=== PATIENT | female | born 1955 | race Caucasian/White ===

== ENCOUNTER 2017-03-02 08:26 | Outpatient (CLI) | payer OTHER | END 2017-03-02 08:27 | DX: Z51.81 Encounter for therapeutic drug level monitoring (principal); E78.5 Hyperlipidemia, unspecified; R73.9 Hyperglycemia, unspecified; I10 Essential (primary) hypertension ==

== ENCOUNTER 2017-08-25 14:24 | Outpatient (CLI) | payer OTHER ==
[2017-08-25 13:10] LABS: BASOPHILS % (AUTO) 0.7 %; EOSINOPHILS # (AUTO) 0.2 10^3/uL (0.0-0.7); EOSINOPHILS % (AUTO) 2.8 %; HCT - HEMATOCRIT 39.9 % (37.0-47.0); HGB - HEMOGLOBIN 13.6 g/dL (12.0-16.0); LYMPHOCYTES # (AUTO) 2.3 10^3/uL (1.5-3.5); LYMPHOCYTES % (AUTO) 37.8 %; MEAN CORPUSCULAR HEMOGLOBIN 31.8 pg (27.0-31.0); MEAN CORPUSCULAR VOLUME 93.5 fL (81.0-99.0); MEAN PLATELET VOLUME 10.9 fL (7.9-10.8); MONOCYTES # (AUTO) 0.6 10^3/uL (0.0-1.0); MONOCYTES % (AUTO) 10.2 %; NEUTROPHILS % (AUTO) 48.5 %; NUCLEATED RED BLOOD CELLS AUTO 0.1 /100WBC; RED BLOOD COUNT 4.27 10^6/uL (4.20-5.40); RED CELL DISTRIBUTION WIDTH 12.8 % (12.0-15.0); UNCORRECTED WHITE BLOOD COUNT 6.2 x10^3/uL; WHITE BLOOD COUNT 6.2 x10^3/uL (4.8-10.8)
[2017-08-25 13:33] LABS: ALBUMIN/GLOBULIN RATIO 1.4 (1.0-2.2); BILIRUBIN,TOTAL 0.3 mg/dL (0.2-1.0); BUN - BLOOD UREA NITROGEN 16 mg/dL (6-20); CARBON DIOXIDE - CO2 29 mmol/L (21-32); CHLORIDE 102 mmol/L (101-111); CHOL/HDL RATIO 3.1 (<4.4); CHOLESTEROL 167 mg/dL; CREATININE 0.8 mg/dL (0.4-1.0); GFR - MDRD 73 (>89); GLUCOSE 120 mg/dL (70-100); HDL CHOLESTEROL 54 mg/dL; LDL/HDL RATIO 1.7 (<4.4); POTASSIUM 3.4 mmol/L (3.5-5.0); SODIUM 136 mmol/L (135-145); TRIGLYCERIDES 116 mg/dL; VLDL CHOLESTEROL 23 mg/dL
[2017-08-25 13:36] LABS: HEMOGLOBIN A1C 0.53 g/dL
== END 2017-08-25 14:25 | disposition home or self-care (01) ==
LOC: LAB.WCP 14:24
PROVIDERS: ATTEND Physician Assistant Medical
DX: Z00.00 Encounter for general adult medical examination without abnormal findings (principal); I10 Essential (primary) hypertension; Z51.81 Encounter for therapeutic drug level monitoring; E78.5 Hyperlipidemia, unspecified; R73.9 Hyperglycemia, unspecified
CPT/HCPCS: 36415; 80053; 80061; 83036; 84443; 85025

== ENCOUNTER 2018-03-03 08:00 | Outpatient (CLI) | payer OTHER ==
[2018-03-03 19:54] LABS: CALCIUM 9.6 mg/dL (8.5-10.3); CREATININE 0.8 mg/dL (0.4-1.0); MAGNESIUM 2.1 mg/dL (1.7-2.8)
== END 2018-03-03 08:01 | disposition home or self-care (01) ==
LOC: LAB.WCP 08:00
PROVIDERS: ATTEND Physician Assistant
DX: E87.6 Hypokalemia (principal)
CPT/HCPCS: 36415; 80048; 83735

== ENCOUNTER 2018-08-26 09:45 | Outpatient (CLI) | payer OTHER ==
[2018-08-26 13:02] LABS: BASOPHILS % (AUTO) 0.3 %; EOSINOPHILS # (AUTO) 0.1 10^3/uL (0.0-0.7); EOSINOPHILS % (AUTO) 2.1 %; HGB - HEMOGLOBIN 13.5 g/dL (12.0-16.0); LYMPHOCYTES # (AUTO) 2.1 10^3/uL (1.5-3.5); LYMPHOCYTES % (AUTO) 34.4 %; MEAN CORPUSCULAR HEMOGLOBIN 32.1 pg (27.0-31.0); MEAN CORPUSCULAR HGB CONC 34.7 g/dL (32.0-36.0); MEAN CORPUSCULAR VOLUME 92.4 fL (81.0-99.0); MONOCYTES # (AUTO) 0.6 10^3/uL (0.0-1.0); MONOCYTES % (AUTO) 9.9 %; NEUTROPHILS # (AUTO) 3.2 10^3/uL (1.5-6.6); NEUTROPHILS % (AUTO) 53.3 %; PLT - PLATELET COUNT 207 10^3/uL (130-450); RED BLOOD COUNT 4.21 10^6/uL (4.20-5.40); RED CELL DISTRIBUTION WIDTH 12.9 % (12.0-15.0); WHITE BLOOD COUNT 6.1 x10^3/uL (4.8-10.8)
[2018-08-26 13:07] LABS: ALBUMIN 4.2 g/dL (3.2-5.5); ALBUMIN/GLOBULIN RATIO 1.4 (1.0-2.2); ALKALINE PHOSPHATASE 62 IU/L (42-121); ALT ALANINE AMINOTRANSFERASE 26 IU/L (10-60); AST ASPARTATE AMINOTRANSFERASE 25 IU/L (10-42); BILIRUBIN,TOTAL 0.6 mg/dL (0.2-1.0); BUN - BLOOD UREA NITROGEN 14 mg/dL (6-20); CALCIUM 9.2 mg/dL (8.5-10.3); CARBON DIOXIDE - CO2 28 mmol/L (21-32); CHLORIDE 98 mmol/L (101-111); CHOL/HDL RATIO 3.1 (<4.4); CHOLESTEROL 168 mg/dL; CREATININE 0.8 mg/dL (0.4-1.0); GFR - MDRD 72 (>89); GLUCOSE 102 mg/dL (70-100); HDL CHOLESTEROL 54 mg/dL; LDL CHOLESTEROL,CALCULATED 82 mg/dL; LDL/HDL RATIO 1.5 (<4.4); SODIUM 135 mmol/L (135-145); TOTAL PROTEIN 7.1 g/dL (6.7-8.2); VLDL CHOLESTEROL 32 mg/dL
[2018-08-26 13:30] LABS: HEMOGLOBIN A1C 0.52 g/dL; HEMOGLOBIN A1C % 5.5 % (4.6-6.2)
== END 2018-08-26 09:46 | disposition home or self-care (01) ==
LOC: LAB.WCP 09:45
PROVIDERS: ATTEND Family Medicine
DX: I10 Essential (primary) hypertension (principal); E87.6 Hypokalemia; H60.60 Unspecified chronic otitis externa, unspecified ear; E78.5 Hyperlipidemia, unspecified; R73.9 Hyperglycemia, unspecified
CPT/HCPCS: 36415; 80053; 80061; 83036; 83721; 84443; 85025

== ENCOUNTER 2019-03-23 08:00 | Outpatient (CLI) | payer OTHER ==
[2019-03-23 13:09] LABS: ALBUMIN/GLOBULIN RATIO 1.4 (1.0-2.2); BILIRUBIN,TOTAL 0.6 mg/dL (0.2-1.0); CALCIUM 9.3 mg/dL (8.5-10.3); CREATININE 0.8 mg/dL (0.4-1.0); TOTAL PROTEIN 6.9 g/dL (6.7-8.2)
== END 2019-03-23 08:01 | disposition home or self-care (01) ==
LOC: LAB.WCP 08:00
PROVIDERS: ATTEND Physician Assistant
DX: E87.6 Hypokalemia (principal)
CPT/HCPCS: 36415; 80053

== ENCOUNTER 2019-09-02 08:00 | Outpatient (CLI) | payer OTHER ==
[2019-09-02 12:39] LABS: BASOPHILS % (AUTO) 0.5 %; EOSINOPHILS # (AUTO) 0.1 10^3/uL (0.0-0.7); EOSINOPHILS % (AUTO) 1.9 %; HGB - HEMOGLOBIN 14.4 g/dL (12.0-16.0); LYMPHOCYTES # (AUTO) 1.7 10^3/uL (1.5-3.5); LYMPHOCYTES % (AUTO) 28.3 %; MEAN CORPUSCULAR HEMOGLOBIN 31.2 pg (27.0-31.0); MEAN CORPUSCULAR HGB CONC 32.1 g/dL (32.0-36.0); MEAN CORPUSCULAR VOLUME 97.2 fL (81.0-99.0); MEAN PLATELET VOLUME 12.3 fL (7.9-10.8); MONOCYTES # (AUTO) 0.6 10^3/uL (0.0-1.0); NEUTROPHILS # (AUTO) 3.5 10^3/uL (1.5-6.6); NEUTROPHILS % (AUTO) 59.1 %; PLT - PLATELET COUNT 222 10^3/uL (130-450); RED BLOOD COUNT 4.62 10^6/uL (4.20-5.40); WHITE BLOOD COUNT 5.9 x10^3/uL (4.8-10.8)
[2019-09-02 13:03] LABS: ALBUMIN 4.3 g/dL (3.2-5.5); ALBUMIN/GLOBULIN RATIO 1.3 (1.0-2.2); ALKALINE PHOSPHATASE 57 IU/L (42-121); ALT ALANINE AMINOTRANSFERASE 37 IU/L (10-60); AST ASPARTATE AMINOTRANSFERASE 28 IU/L (10-42); BILIRUBIN,TOTAL 0.6 mg/dL (0.2-1.0); BUN - BLOOD UREA NITROGEN 18 mg/dL (6-20); CALCIUM 9.7 mg/dL (8.5-10.3); CARBON DIOXIDE - CO2 30 mmol/L (21-32); CHLORIDE 103 mmol/L (101-111); CHOL/HDL RATIO 3.2 (<4.4); CHOLESTEROL 190 mg/dL; CREATININE 0.9 mg/dL (0.4-1.0); GFR - MDRD 63 (>89); GLUCOSE 112 mg/dL (70-100); HDL CHOLESTEROL 60 mg/dL; LDL CHOLESTEROL,CALCULATED 95 mg/dL; LDL/HDL RATIO 1.6 (<4.4); SODIUM 141 mmol/L (135-145); TOTAL PROTEIN 7.5 g/dL (6.7-8.2); VLDL CHOLESTEROL 35 mg/dL
[2019-09-02 13:14] LABS: HB2 TOTAL 15.3 g/dL; HEMOGLOBIN A1C 0.57 g/dL; HEMOGLOBIN A1C % 5.6 % (4.6-6.2)
== END 2019-09-02 23:59 | disposition home or self-care (01) ==
LOC: LAB.WCP 08:00
PROVIDERS: ATTEND Physician Assistant
DX: Z00.00 Encounter for general adult medical examination without abnormal findings (principal); E87.6 Hypokalemia; I10 Essential (primary) hypertension; R73.9 Hyperglycemia, unspecified; Z51.81 Encounter for therapeutic drug level monitoring; E78.5 Hyperlipidemia, unspecified; Z79.899 Other long term (current) drug therapy
CPT/HCPCS: 36415; 80053; 80061; 83036; 83721; 84443; 85025

== ENCOUNTER 2021-02-04 07:00 | Outpatient (CLI) | payer OTHER, MEDICARE ==
[2021-02-04 11:33] LABS: BASOPHILS % (AUTO) 0.2 %; EOSINOPHILS # (AUTO) 0.1 10^3/uL (0.0-0.7); EOSINOPHILS % (AUTO) 2.1 %; HCT - HEMATOCRIT 43.5 % (37.0-47.0); HGB - HEMOGLOBIN 14.2 g/dL (12.0-16.0); LYMPHOCYTES % (AUTO) 37.7 %; MEAN CORPUSCULAR HEMOGLOBIN 31.4 pg (27.0-31.0); MEAN CORPUSCULAR HGB CONC 32.6 g/dL (32.0-36.0); MEAN CORPUSCULAR VOLUME 96.2 fL (81.0-99.0); MEAN PLATELET VOLUME 11.9 fL (7.9-10.8); MONOCYTES # (AUTO) 0.5 10^3/uL (0.0-1.0); MONOCYTES % (AUTO) 9.9 %; NEUTROPHILS # (AUTO) 2.6 10^3/uL (1.5-6.6); NEUTROPHILS % (AUTO) 49.9 %; PLT - PLATELET COUNT 220 10^3/uL (130-450); RED BLOOD COUNT 4.52 10^6/uL (4.20-5.40); RED CELL DISTRIBUTION WIDTH 12.2 % (12.0-15.0); WHITE BLOOD COUNT 5.2 x10^3/uL (4.8-10.8)
[2021-02-04 12:00] LABS: CREATININE,URINE 265.2 mg/dL; MICROALBUM/CREATININE RATIO,UR 3.4 ug/mg (<30.0); MICROALBUMIN,URINE 0.9 mg/dL (0-300.0)
[2021-02-04 12:34] LABS: ALBUMIN 4.3 g/dL (3.2-5.5); ALBUMIN/GLOBULIN RATIO 1.5 (1.0-2.2); ALKALINE PHOSPHATASE 55 IU/L (42-121); ALT ALANINE AMINOTRANSFERASE 31 IU/L (10-60); AST ASPARTATE AMINOTRANSFERASE 26 IU/L (10-42); BILIRUBIN,TOTAL 0.7 mg/dL (0.2-1.0); BUN - BLOOD UREA NITROGEN 17 mg/dL (6-20); CARBON DIOXIDE - CO2 30 mmol/L (21-32); CHLORIDE 101 mmol/L (101-111); CHOL/HDL RATIO 3.5 (<4.4); CHOLESTEROL 191 mg/dL; GFR - MDRD 56 (>89); GLUCOSE 120 mg/dL (70-100); HDL CHOLESTEROL 55 mg/dL; LDL CHOLESTEROL,CALCULATED 104 mg/dL; LDL/HDL RATIO 1.9 (<4.4); POTASSIUM 3.5 mmol/L (3.5-5.0); SODIUM 140 mmol/L (135-145); TOTAL PROTEIN 7.1 g/dL (6.7-8.2); TRIGLYCERIDES 158 mg/dL; VLDL CHOLESTEROL 32 mg/dL
[2021-02-04 12:35] LABS: THYROID STIMULATING HORMONE 1.3 uIU/mL (0.34-5.60)
[2021-02-04 12:45] LABS: ESTIMATED AVERAGE GLUCOSE 108 mg/dL (70-100); HEMOGLOBIN A1c% 5.4 % (4.27-6.07)
== END 2021-02-04 23:59 | disposition home or self-care (01) ==
LOC: LAB.WCP 07:00
PROVIDERS: ATTEND Family Medicine
DX: Z00.00 Encounter for general adult medical examination without abnormal findings (principal); R73.9 Hyperglycemia, unspecified; E87.6 Hypokalemia; I10 Essential (primary) hypertension; Z78.0 Asymptomatic menopausal state
CPT/HCPCS: 36415; 80053; 80061; 82043; 82570; 83036; 83721; 84443; 85025

== ENCOUNTER 2021-03-08 14:17 | Outpatient (CLI) | payer OTHER, MEDICARE ==
--- NOTE | 2021-03-08 17:13 | DEXA Report ---
PROCEDURE: Dexa Spine and/or Hip INDICATIONS: POST MENOPAUSAL TECHNIQUE: Dual energy x-ray absorptiometry (DXA) was performed on a [employer]. Regions measur ed are the AP Spine, femoral neck, and if needed forearm. COMPARISON: None. FINDINGS: Lumbar Spine: Bone Mineral Density 1.00 to g/cm/cm,T score -1.4, osteopenia Left Hip: Bone Mineral Density 0.996 g/cm/cm,T score -0.1, normal Left Femoral Neck: Bone Mineral Density 0.987 g/cm/cm, T score -0.4, normal (T score greater or equal to -1.0: NORMAL) (T score from -1.1 to -2.4: OSTEOPENIA) (T score less than or equal to -2.5 to: OSTEOPOROSIS) Impression: Osteopenia. Patients with diagnosis of osteoporosis or osteopenia should have regular bone mineral density assess ment. For those eligible for Medicare, routine testing is allowed once every 2 years. Testing frequ ency can be increased for patients who have rapidly progressing disease or for those who are receivin g medical therapy to restore bone mass. Reviewed by: Alma Alvarez MD, PhD on 03/08/2021 5:12 PM PDT Approved by: Alma Alvarez MD, PhD on 03/08/2021 5:12 PM PDT Station ID: [id number]
== END 2021-03-08 14:18 | disposition home or self-care (01) ==
LOC: DI 14:17
PROVIDERS: ATTEND Family Medicine
DX: M85.88 Other specified disorders of bone density and structure, other site (principal)

== ENCOUNTER 2021-09-16 07:00 | Outpatient (CLI) | payer MEDICARE, OTHER ==
[2021-09-16 19:01] LABS: CRP - C-REACTIVE PROTEIN < 1.0 mg/dL (0-1.0)
[2021-09-16 19:13] LABS: RHEUMATOID FACTOR NEGATIVE (Negative)
== END 2021-09-16 23:59 | disposition home or self-care (01) ==
LOC: LAB.WCP 07:00
PROVIDERS: ATTEND Family Medicine
DX: R22.32 Localized swelling, mass and lump, left upper limb (principal)
CPT/HCPCS: 36415; 84550; 85651; 86140; 86200; 86430

== ENCOUNTER 2021-09-18 12:32 | Outpatient (CLI) | payer OTHER, MEDICARE ==
--- NOTE | 2021-09-19 09:20 | XRAY Report ---
PROCEDURE: Wrist 3 View LT INDICATIONS: SWELLING OF LEFT WRIST TECHNIQUE: 4 views of the wrist were acquired. COMPARISON: None FINDINGS: Bones: No acute fractures or dislocations. Small well-corticated bony fragment adjacent to the first carpal metacarpal joint. Mild joint space narrowing and periarticular osteophyte formation at the ra diocarpal, scaphotrapezial, and first carpometacarpal joints. No suspicious bony lesions. Scaphoid view: Negative Soft tissues: No suspicious soft tissue calcifications. IMPRESSION: 1. Possible small chronic fracture fragment adjacent to the first carpometacarpal joint. 2. Multifocal osteoarthritis. 3. No acute fracture. No osseous lesion. If symptoms and/or clinical suspicion for pathology continue , further assessment with repeat plain films, or advanced imaging (e.g., CT, MRI, or bone scan) is re commended for further assessment. Reviewed by: Blanche Wolfe MD on 09/19/2021 9:18 AM PDT Approved by: Blanche Wolfe MD on 09/19/2021 9:18 AM PDT Station ID: [id number]
== END 2021-09-18 12:33 | disposition home or self-care (01) ==
LOC: DI.N 12:32
PROVIDERS: ATTEND Family Medicine
DX: M79.89 Other specified soft tissue disorders (principal); M19.032 Primary osteoarthritis, left wrist

== ENCOUNTER 2022-03-02 13:23 | Emergency (ER) | payer OTHER ==
[2022-03-02 14:04] LABS: BASOPHILS % (AUTO) 0.2 %; EOSINOPHILS # (AUTO) 0.1 10^3/uL (0.0-0.7); EOSINOPHILS % (AUTO) 0.5 %; HCT - HEMATOCRIT 41.1 % (37.0-47.0); LYMPHOCYTES # (AUTO) 2.4 10^3/uL (1.5-3.5); LYMPHOCYTES % (AUTO) 19.2 %; MEAN CORPUSCULAR HEMOGLOBIN 31.8 pg (27.0-31.0); MEAN CORPUSCULAR HGB CONC 34.1 g/dL (32.0-36.0); MEAN CORPUSCULAR VOLUME 93.4 fL (81.0-99.0); MEAN PLATELET VOLUME 9.2 fL (7.9-10.8); MONOCYTES # (AUTO) 1.6 10^3/uL (0.0-1.0); MONOCYTES % (AUTO) 12.5 %; NEUTROPHILS # (AUTO) 8.4 10^3/uL (1.5-6.6); NEUTROPHILS % (AUTO) 67.3 %; PLT - PLATELET COUNT 215 10^3/uL (130-450); WHITE BLOOD COUNT 12.4 x10^3/uL (4.8-10.8)
[2022-03-02 14:10] LABS: BILIRUBIN,TOTAL 0.7 mg/dL (0.2-1.0); CALCIUM 9.6 mg/dL (8.5-10.3); CREATININE 0.9 mg/dL (0.4-1.0); POTASSIUM 3.7 mmol/L (3.5-5.0); SLIDE REVIEW? Indicated; TOTAL PROTEIN 7.9 g/dL (6.7-8.2)
[2022-03-02 14:14] LABS: BILIRUBIN,URINE NEGATIVE (NEGATIVE); CLARITY,URINE CLEAR (CLEAR); GLUCOSE, URINE (UA) NEGATIVE (NEGATIVE); KETONES,URINE (UA) NEGATIVE (NEGATIVE); LEUKOCYTE ESTERASE, URINE NEGATIVE (NEGATIVE); NITRITE,URINE NEGATIVE (NEGATIVE); OCCULT BLOOD,URINE MODERATE (NEGATIVE); PROTEIN,URINE NEGATIVE (NEGATIVE); UROBILINOGEN,URINE 0.2 (NORMAL) E.U./dL (NORMAL)
[2022-03-02 14:27] LABS: RBC,URINE 0-5 /HPF (0-5); WBC,URINE 0-3 /HPF (0-5)
[2022-03-02 14:28] LABS: BACTERIA,URINE Few /HPF (None Seen); SQUAMOUS EPITHELIAL CELL,UR FEW Squamous (<= Few)
[2022-03-02] MEDS ORDERED: IOVERSOL 320 100 ML VIAL IVP ONE ×2 (14:36→14:47)
[2022-03-02] MEDS ORDERED: AMOX/CLAV 875 MG/125 MG TABLET PO STA (14:54)
--- NOTE | 2022-03-02 15:10 | CT Report ---
PROCEDURE: Abdomen/Pelvis W INDICATIONS: LLQ pain x 3 days CONTRAST: IV CONTRAST: Optiray 320 ml: 100 PO CONTRAST: *NO PO CONTRAST TECHNIQUE: After the administration of IV contrast, 5 mm thick sections acquired from the diaphragms to the symp hysis. 5 mm thick coronal and sagittal reformats were acquired. For radiation dose reduction, the f ollowing was used: automated exposure control, adjustment of mA and/or kV according to patient size. COMPARISON: None. FINDINGS: Image quality: Excellent. ABDOMEN: Lung bases: Lung bases are clear. Heart size is normal. Solid organs: Diffuse fatty liver infiltration can be seen. The liver demonstrates normal size. No liver lesions are detected. Gallbladder has been removed. The spleen demonstrates normal size and demonstrates no suspicious lesions. Accessory splenules are s een along the hilum of the primary spleen. Biliary system is non dilated. Pancreas enhances normally. No adrenal nodules. Kidneys demonstrate normal size and enhancement, without hydronephrosis. Peritoneum and bowel: Focal wall thickening inflammatory change can be seen involving the distal desc ending colon/proximal sigmoid colon. Moderate surrounding inflammatory change can be seen. Diverticul a formation can be seen within this region. No findings of abscess can be seen. No free air or signif icant free fluid can be seen. The colon is otherwise unremarkable. No dilated loops of small bowel are seen. No significant gastric abnormality is seen. Nodes and vessels: No retroperitoneal or mesenteric adenopathy by size criteria. Aorta and inferior vena cava are normal in size. Miscellaneous: No ventral hernias. PELVIS: Genitourinary: Bladder wall thickness is normal. Sternotomy changes are noted. Miscellaneous: No inguinal hernias or adenopathy. Bones: No suspicious bony lesions. No vertebral body compression fractures. Focal degenerative katrin nge can be seen involving the lower lumbar spine. Milder degenerative changes are seen elsewhere. IMPRESSION: Left lower quadrant diverticulitis. No findings of perforation or abscess are seen. A colonoscopy is recommended for further evaluation, following treatment of the patient's current cli nical episode, for evaluation of a potential underlying mass. Incidental note is made of: Cholecystectomy Fatty liver infiltration Accessory splenules Hysterectomy Lower lumbar spine degenerative change Reviewed by: Salazar Toro MD on 03/02/2022 2:09 PM MONIQUE Approved by: Salazar Toro MD on 03/02/2022 2:09 PM [place] Station ID: [id number]
--- NOTE | 2022-03-02 15:15 | ED Physician Documentation ---
PD HPI ABD PAIN - Stated complaint Stated Complaint: ABD PX,FEMALE - Chief complaint Chief Complaint: Abd Pain - History obtained from History obtained from: Patient - History of Present Illness Timing - onset: Today, How many days ago (3) Timing - duration: Days (3) Pain level max: 6 Pain level now: 4 Quality: Aching, Pain Associated symptoms: No: Fever, Nausea, Vomiting, Diarrhea, Constipation, Melena, Hematochezia, Dysuria, Hematuria, Chest pain - Additional information Additional information: Patient is a 66-year-old female who presents to the emergency department with left lower quadrant abdominal pain for the past 3 days. Nothing makes it better or worse. No nausea, vomiting, diarrhea. No fevers. She went to the walk-in clinic, they were concerned about diverticulitis and was sent here for a CT scan. Review of Systems Constitutional: denies: Fever, Chills GI: denies: Vomiting, Diarrhea Skin: denies: Rash Musculoskeletal: denies: Neck pain, Back pain Neurologic: denies: Headache PD PAST MEDICAL HISTORY - Past Medical History Past Medical History: No - Past Surgical History Past Surgical History: No - Present Medications Home Medications: Ambulatory Orders Medication Instructions Recorded Confirmed Amox/Clav 875/125 [Augmentin] 1 tab PO Q12H #20 tablet 03/02/22 - Allergies Allergies/Adverse Reactions: Allergies Allergy/AdvReac Type Severity Reaction Status Date / Time codeine Allergy Respiratory Verified 03/02/22 13:43 morphine Allergy Respiratory Verified 03/02/22 13:43 oxycodone Allergy Respiratory Verified 03/02/22 13:43 - Living Situation Living Arrangement: reports: At home - Social History Does the pt smoke?: No Does the pt drink ETOH?: No Does the pt have substance abuse?: No PD ED PE NORMAL - Vitals Vital signs reviewed: Yes - General General: Alert and oriented X 3, No acute distress - HEENT HEENT: Moist mucous membranes - Neck Neck: Supple, no meningeal sign - Cardiac Cardiac: RRR, Strong equal pulses - Respiratory Respiratory: No respiratory distress, Clear bilaterally - Abdomen Abdomen: Soft, Non distended, Other (Tender palpation left lower quadrant without peritoneal signs.) - Derm Derm: Warm and dry - Neuro Neuro: Alert and oriented X 3 - Psych Psych: Normal mood, Normal affect Results - Vitals Vitals: Vital Signs - 24 hr 03/02/22 03/02/22 13:40 15:06 Temperature 36.7 C Heart Rate 90 90 Respiratory 16 18 Rate Blood Pressure 138/69 H 123/67 O2 Saturation 96 99 Oxygen O2 Source Room air - Labs Labs: Laboratory Tests 03/02/22 03/02/22 03/02/22 13:52 13:52 14:00 WBC 12.4 H RBC 4.40 Hgb 14.0 Hct 41.1 MCV 93.4 MCH 31.8 H MCHC 34.1 RDW 12.0 Plt Count 215 MPV 9.2 Neut # (Auto) 8.4 H Lymph # (Auto) 2.4 [place] # (Auto) 1.6 H Eos # (Auto) 0.1 Baso # (Auto) 0.0 Absolute Nucleated RBC 0.00 Nucleated RBC % 0.0 Manual Slide Review Indicated Sodium 138 Potassium 3.7 Chloride 97 L Carbon Dioxide 30 Anion Gap 11.0 BUN 15 Creatinine 0.9 Estimated GFR (MDRD) 63 L Glucose 121 H Calcium 9.6 Total Bilirubin 0.7 AST 20 ALT 26 Alkaline Phosphatase 53 Total Protein 7.9 Albumin 4.0 Globulin 3.9 Albumin/Globulin Ratio 1.0 Lipase 36 Urine Color LIGHT YELLOW Urine Clarity CLEAR Urine pH 6.0 Ur Specific [place] 1.015 Urine Protein NEGATIVE Urine Glucose (UA) NEGATIVE Urine Ketones NEGATIVE Urine Occult Blood MODERATE H Urine Nitrite NEGATIVE Urine Bilirubin NEGATIVE Urine Urobilinogen 0.2 (NORMAL) Ur Leukocyte Esterase NEGATIVE Urine RBC 0-5 Urine WBC 0-3 Ur Squamous Epith Cells FEW Squamous Urine Bacteria Few Ur Microscopic Review INDICATED Urine Culture Comments NOT INDICATED - Rads (name of study) CT abdomen and pelvis Radiology: Final report received, EMP read contemporaneously, See rad report (Left lower quadrant diverticulitis, uncomplicated) PD MEDICAL DECISION MAKING - ED course Complexity details: reviewed results, re-evaluated patient, considered differential, d/w patient ED course: 66-year-old female with left lower quadrant diverticulitis, no perforation or abscess. We will treat with antibiotics. Discussed risks and benefits of antibiotic treatment for diverticulitis, she has elected to take the antibiotics. Patient has not had a colonoscopy for over 10 years, recommend that she have a colonoscopy once treatment is completed. Patient counseled regarding signs and symptoms for which I believe and urgent re-evaluation would be necessary. Patient with good understanding of and agreement to plan and is comfortable going home at this time This document was made in part using voice recognition software. While efforts are made to proofread this document, sound alike and grammatical errors may occur. Departure - Departure Disposition: 01 Home, Self Care Clinical Impression: Diverticulitis Condition: Good Instructions: ED Diverticulitis Follow-Up: Quco Bernal DO [Primary Care Provider] - Within 1 week Prescriptions: Amox/Clav 875/125 [Augmentin] 1 tab PO Q12H #20 tablet Comments: Please take all antibiotics until gone. Return if you worsen. Please follow-up with your doctor for further care. It is recommended to have a colonoscopy after completion of treatment. Your prescription was sent to [facility] in [place].
[2022-03-02 16:04] VITALS: BP 95/64
== END 2022-03-02 15:55 | disposition home or self-care (01) ==
LOC: ED 13:23
DX: K57.92 Diverticulitis of intestine, part unspecified, without perforation or abscess without bleeding (principal)
CPT/HCPCS: 36415; 74177; 80053; 81001; 83690; 85025; 99284; A9270; Q9967; 81003; 87086

== ENCOUNTER 2022-08-15 06:28 | Day surgery (SDC) | payer OTHER ==
[2022-08-15] MEDS ORDERED: LACTATED RINGERS 1,000 ML IV ONE ×2 (06:46→08:17)
--- NOTE | 2022-08-15 07:14 | ANESTHESIA ---
Pre-Anesthesia VS, & Labs - Diagnosis COLON SCREENING - Procedure COLONOSCOPY Vital Signs: Temp Pulse Resp BP Pulse Ox O2 Flow Rate 36.5 C 74 12 118/72 96 0 08/15/22 06:46 08/15/22 06:46 08/15/22 06:46 08/15/22 06:46 08/15/22 06:46 08/15/22 06:46 Height: 5 ft 4 in Weight (kg): 74 kg Body Mass Index: 28.0 BMI Classification: Overweight - NPO >8 hours - Is Patient ?: No Home Medications and Allergies Home Medications: Ambulatory Orders Calcium Carbonate [Calcium] 600 mg PO DAILY 08/14/22 Cholecalciferol (Vitamin D3) [Vitamin D3] 1,250 mcg PO DAILY 08/14/22 Lactobacillus Combination No.4 [Probiotic] 1 each PO DAILY 08/14/22 [place]-3/Dha/Epa/Fish Oil [Fish Oil 1,000 mg Softgel] 1 tab ORAL DAILY 08/14/22 Pravastatin Sodium 20 mg PO DAILY 08/14/22 Triamterene 50 mg PO DAILY 08/14/22 Triazolam 0.25 mg PO PRN PRN 08/14/22 Tumeric/Ging/Bramwell/Oreg/Capryl [Candicidal Capsule] 1 each PO DAILY 08/14/22 buPROPion HCL [Bupropion Xl] 150 mg PO BID 08/14/22 glucosamine HCL [Glucosamine HCl] 1,500 mg PO DAILY 08/14/22 traZODone [Desyrel] 50 mg PO HS PRN 08/14/22 Calcium Carbonate [Calcium] 600 mg PO DAILY 08/14/22 Cholecalciferol (Vitamin D3) [Vitamin D3] 1,250 mcg PO DAILY 08/14/22 Lactobacillus Combination No.4 [Probiotic] 1 each PO DAILY 08/14/22 [place]lin-3/Dha/Epa/Fish Oil [Fish Oil 1,000 mg Softgel] 1 tab ORAL DAILY 08/14/22 Pravastatin Sodium 20 mg PO DAILY 08/14/22 Triamterene 50 mg PO DAILY 08/14/22 Triazolam 0.25 mg PO PRN PRN 08/14/22 Tumeric/Ging/Bramwell/Oreg/Capryl [Candicidal Capsule] 1 each PO DAILY 08/14/22 buPROPion HCL [Bupropion Xl] 150 mg PO BID 08/14/22 glucosamine HCL [Glucosamine HCl] 1,500 mg PO DAILY 08/14/22 traZODone [Desyrel] 50 mg PO HS PRN 08/14/22 Allergies/Adverse Reactions: Allergies Allergy/AdvReac Type Severity Reaction Status Date / Time codeine Allergy Respiratory Verified 08/15/22 06:51 morphine Allergy Respiratory Verified 08/15/22 06:51 oxycodone Allergy Respiratory Verified 08/15/22 06:51 Anes History & Medical History - Anesthetic History Anesthesia Complications: reports: No previous complications Family history of Anesthesia Complications: Denies Family history of Malignant Hyperthermia: Denies - Medical History Cardiovascular: reports: Hypertension, High cholesterol Pulmonary: reports: None Gastrointestinal: reports: Diverticulitis Urinary: reports: None Neuro: reports: None Musculoskeletal: reports: Osteoarthritis Endocrine/Autoimmune: reports: None Blood Disorders: reports: None Skin: reports: None Smoking Status: Former smoker Psychosocial: reports: Depression History of Cancer?: No - Surgical History General: reports: Cholecystectomy Gynecologic: reports: Hysterectomy Exam General: Alert, Oriented x3, Cooperative, No acute distress Dental: WNL Mouth Openin Fingerbreadth Neck Mobility: Normal Mallampati classification: II Thyromental Distance: less than 4 cm Mental/Cognitive Status: Alert/Oriented X3, Normal for patient Cognitive Status: Within normal limits Plan Anesthesia Type: General, Total IV Consent for Procedure(s) Verified and Reviewed: Yes Code Status: Attempt Resuscitation ASA classification: 2-Mild systemic disease Is this case an emergency?: No
[2022-08-15] MEDS ORDERED: PROPOFOL 500 MG/50 ML 500 MG/50 ML VIAL ONE (07:33)
[2022-08-15] MEDS ORDERED: MIDAZOLAM 2 MG/2 ML VIAL ONE (07:35)
[2022-08-15 08:38] VITALS: BP 111/65
--- NOTE | 2022-08-15 09:39 | ANESTHESIA POST OP EVALUATION ---
Anesthesia Post Eval - Post Anesthesia Eval Vitals: Last Vital Signs Temp 36.2 C L 08/15/22 08:37 Pulse 76 08/15/22 08:37 Resp 14 08/15/22 08:37 BP 111/65 08/15/22 08:37 Pulse Ox 98 08/15/22 08:37 O2 Flow Rate 0 08/15/22 06:46 CV Function Including HR & BP: Stable Pain Control: Satisfactory Nausea & Vomiting: Negative Mental Status: Baseline Respiratory Status: Airway Patent Hydration Status: Satisfactory Anesthesia Complications: None
== END 2022-08-15 06:29 | disposition home or self-care (01) ==
LOC: SDS 06:28
PROVIDERS: ATTEND Surgery
PROC: 0DBL8ZX Excision of Transverse Colon, Via Natural or Artificial Opening Endoscopic, Diagnostic (ICD-10-PCS; 2022-08-15)
PROC: 0DBM8ZX Excision of Descending Colon, Via Natural or Artificial Opening Endoscopic, Diagnostic (ICD-10-PCS; principal; 2022-08-15 07:30)
DX: Z12.11 Encounter for screening for malignant neoplasm of colon (principal); D12.3 Benign neoplasm of transverse colon; K57.30 Diverticulosis of large intestine without perforation or abscess without bleeding; I10 Essential (primary) hypertension; F41.9 Anxiety disorder, unspecified; Z87.891 Personal history of nicotine dependence
CPT/HCPCS: 45380; J7120

== ENCOUNTER 2023-06-27 21:02 | Outpatient (CLI) | payer OTHER | END 2023-06-27 23:59 | disposition critical access hospital (66) | LOC: EMS 21:02 | DX: R20.0 Anesthesia of skin (principal); R47.1 Dysarthria and anarthria; R46.4 Slowness and poor responsiveness; R53.1 Weakness; R29.810 Facial weakness; R47.81 Slurred speech | CPT/HCPCS: A0425; A0429 ==

== ENCOUNTER 2023-06-27 21:26 | Observation (INO) | payer OTHER ==
--- NOTE | 2023-06-27 21:47 | CT Report ---
PROCEDURE: Head W/O Stroke Protocol INDICATIONS: slurred speech, facial droop (L) TECHNIQUE: Noncontrast 4.5 mm thick angled axial sections acquired from the foramen magnum to the vertex, with c oronal reformats. For radiation dose reduction, the following was used: automated exposure control, adjustment of mA and/or kV according to patient size. COMPARISON: None. FINDINGS: Image quality: Excellent. CSF spaces: Basal cisterns are patent. No extra-axial fluid collections. Ventricles are normal in size and shape. Brain: No midline shift. No intracranial masses or hemorrhage. Bashir-white matter interface is norm al. Skull and face: Calvarium and visualized facial bones are intact, without suspicious lesions. Sinuses: Visualized sinuses and mastoids are clear. IMPRESSION: Normal for age, source of current symptoms is not seen. This study fulfills neurological imaging criteria for inclusion or exclusion of acute stroke therapie s based on available published neurological imaging guidelines. Reviewed by: Bryan Coon MD on 06/27/2023 9:46 PM PDT Approved by: Bryan Coon MD on 06/27/2023 9:46 PM PDT Station ID: [id number]
[2023-06-27 22:10] LABS: BILIRUBIN,URINE NEGATIVE (NEGATIVE); GLUCOSE, URINE (UA) NEGATIVE (NEGATIVE); KETONES,URINE (UA) NEGATIVE (NEGATIVE); LEUKOCYTE ESTERASE, URINE NEGATIVE (NEGATIVE); NITRITE,URINE NEGATIVE (NEGATIVE); OCCULT BLOOD,URINE NEGATIVE (NEGATIVE); PROTEIN,URINE NEGATIVE (NEGATIVE); UROBILINOGEN,URINE 0.2 (NORMAL) E.U./dL (NORMAL)
[2023-06-27 22:11] LABS: CLARITY,URINE CLEAR (CLEAR)
--- NOTE | 2023-06-27 22:12 | ED Physician Documentation ---
PD HPI FOCAL NEURO - Stated complaint Stated Complaint: CODE STROKE - Chief complaint Chief Complaint: Neuro - History obtained from History obtained from: Patient, EMS - Additional information Additional information: 68-year-old female with history of CVA with no residual deficit presents by EMS from home for slurred speech and left-sided facial droop since 830 tonight. EMS reports that symptoms briefly resolved during transport, however shortly after arrival to the emergency department symptoms returned. Patient denies use of blood thinners. Review of Systems Constitutional: denies: Fever, Chills Cardiac: denies: Chest pain / pressure, Palpitations, Calf pain Respiratory: denies: Dyspnea, Cough, Wheezing GI: denies: Abdominal Pain, Nausea, Vomiting, Constipation, Diarrhea Musculoskeletal: denies: Neck pain, Back pain, Extremity pain Neurologic: reports: Difficulty speaking, Other (FACIAL DROOP (LEFT)). denies: Focal weakness, Numbness, Near syncope, Headache, Head injury, LOC PD PAST MEDICAL HISTORY - Past Medical History Cardiovascular: Hypertension, High cholesterol Respiratory: None Neuro: None Endocrine/Autoimmune: None GI: Diverticulitis : None HEENT: None, Chronic hearing loss Psych: Panic attacks Musculoskeletal: Osteoarthritis Derm: None - Past Surgical History Past Surgical History: No General: Cholecystectomy /SYSTEM TRAINER: Hysterectomy - Present Medications Home Medications: Ambulatory Orders Medication Instructions Recorded Confirmed Pravastatin Sodium 20 mg PO HS 06/27/23 06/27/23 Trazodone HCl 100 mg PO HS 06/27/23 06/27/23 Triamterene/Hydrochlorothiazid 1 each PO DAILY 06/27/23 06/27/23 [Triamterene-Hctz 37.5-25 mg Cp] buPROPion HCL [Bupropion HCl Sr] 150 mg PO BID 06/27/23 06/27/23 - Allergies Allergies/Adverse Reactions: Allergies Allergy/AdvReac Type Severity Reaction Status Date / Time codeine Allergy Respiratory Verified 06/27/23 21:54 morphine Allergy Respiratory Verified 06/27/23 21:54 oxycodone Allergy Respiratory Verified 06/27/23 21:54 - Social History Does the pt smoke?: No Smoking Status: Former smoker Does the pt drink ETOH?: No Does the pt have substance abuse?: No PD ED PE NORMAL - Vitals Vital signs reviewed: Yes - General General: Alert and oriented X 3, No acute distress, Well developed/nourished - HEENT HEENT: Atraumatic, PERRL, EOMI - Neck Neck: Supple, no meningeal sign - Cardiac Cardiac: RRR, Strong equal pulses - Respiratory Respiratory: No respiratory distress, Clear bilaterally - Abdomen Abdomen: Soft, Non tender, Non distended - Derm Derm: Normal color, Warm and dry, No rash - Extremities Extremities: No deformity, No tenderness to palpate, Normal ROM s pain, No edema - Neuro Neuro: Alert and oriented X 3, No motor deficit, Other (slight slurring of speech. No aphasia. Slight facial droop L lower face) - Psych Psych: Normal mood, Normal affect NIHSS - Level of Consciousness Level of consciousness: (0) Alert, Keenly responsive LOC Questions: (0) Answers both Q's correct - Gaze Best Gaze: (0) Normal - Visual Visual: (0) No loss - Facial Palsy Facial Palsy: (1) Minor paralysis - Motor Arms (both separate) Motor Arm (right): (0) No drift Motor Arm (left): (0) No drift - Motor Legs (both separate) Motor Leg (right): (0) No drift Motor Leg (left): (0) No drift - Limb Ataxia Limb Ataxia: (0) Absent - Sensory Sensory: (0) Normal - Best Language Best Language: (0) No aphasia - Dysarthria Dysarthria: (1) [id number] dysarthria - Extinction and Inattention (formally neg Extinction and inattention: (0) No abnormality Results - Vitals Vitals: Vital Signs - 24 hr 06/27/23 06/27/23 06/27/23 21:48 22:00 22:30 Heart Rate 79 84 80 Respiratory 17 14 19 Rate Blood Pressure 157/69 H 140/50 H 131/77 H O2 Saturation 95 96 98 06/27/23 06/27/23 06/28/23 23:00 23:30 00:00 Heart Rate 80 80 75 Respiratory 20 18 11 L Rate Blood Pressure 131/77 H 131/77 H 126/56 L O2 Saturation 98 98 97 06/28/23 06/28/23 06/28/23 00:30 01:00 01:30 Heart Rate 77 67 71 Respiratory 12 10 L 10 L Rate Blood Pressure 119/56 L 126/78 118/54 L O2 Saturation 96 96 97 06/28/23 06/28/23 02:00 02:30 Heart Rate 66 67 Respiratory 10 L 10 L Rate Blood Pressure 109/58 L 118/55 L O2 Saturation 96 96 Oxygen O2 Source Room air - EKG (time done) 5492 EKG releavant findings:: EKG personally interpreted by author of this note. Relevant findings are: Rate: Rate (enter#) (82) Rhythm: NSR [place]: Normal Intervals: Normal ME QRS: Normal - Labs Labs: Laboratory Tests 06/27/23 06/27/23 06/27/23 21:45 22:18 22:18 WBC 5.9 RBC 4.37 Hgb 13.6 Hct 40.9 MCV 93.6 MCH 31.1 H MCHC 33.3 RDW 12.1 Plt Count 202 MPV 9.5 Neut # (Auto) 3.0 Lymph # (Auto) 2.0 [place] # (Auto) 0.7 Eos # (Auto) 0.1 Baso # (Auto) 0.0 Absolute Nucleated RBC 0.00 Nucleated RBC % 0.0 PT 10.1 INR 0.9 Sodium Potassium Chloride Carbon Dioxide Anion Gap BUN Creatinine Estimated GFR (MDRD) Glucose Calcium Total Bilirubin AST ALT Alkaline Phosphatase Troponin I High Sens Total Protein Albumin Globulin Albumin/Globulin Ratio Urine Color YELLOW Urine Clarity CLEAR Urine pH 7.0 Ur Specific [place] 1.010 Urine Protein NEGATIVE Urine Glucose (UA) NEGATIVE Urine Ketones NEGATIVE Urine Occult Blood NEGATIVE Urine Nitrite NEGATIVE Urine Bilirubin NEGATIVE Urine Urobilinogen 0.2 (NORMAL) Ur Leukocyte Esterase NEGATIVE Ur Microscopic Review NOT INDICATED Urine Culture Comments NOT INDICATED 06/27/23 06/27/23 22:18 22:18 WBC RBC Hgb Hct MCV MCH MCHC RDW Plt Count MPV Neut # (Auto) Lymph # (Auto) [place] # (Auto) Eos # (Auto) Baso # (Auto) Absolute Nucleated RBC Nucleated RBC % PT INR Sodium 137 Potassium 3.3 L Chloride 101 Carbon Dioxide 29 Anion Gap 7.0 BUN 18 Creatinine 1.1 H Estimated GFR (MDRD) 49 L Glucose 136 H Calcium 9.5 Total Bilirubin 0.3 AST 29 ALT 37 Alkaline Phosphatase 48 Troponin I High Sens 4.3 Total Protein 7.2 Albumin 4.0 Globulin 3.2 Albumin/Globulin Ratio 1.3 Urine Color Urine Clarity Urine pH Ur Specific [place] Urine Protein Urine Glucose (UA) Urine Ketones Urine Occult Blood Urine Nitrite Urine Bilirubin Urine Urobilinogen Ur Leukocyte Esterase Ur Microscopic Review Urine Culture Comments PD Medical Decision Making - ED course Complexity details: reviewed results, re-evaluated patient, considered differential, d/w patient, d/w family, d/w supply chain consultant ED course: Patient with slurred speech and facial droop. Briefly resolved in transit, however symptoms returned upon EMS arrival to emergency department. Upon my exam NIH 2 due to facial droop and slight slurring of speech. Stat stroke CT ordered. Teleneurology consulted upon patient's arrival, who also evaluated the patient. Shared decision making with patient and telemetry neurology, patient decided that risks of TNKase were too high based on current symptoms and declined TNKase. Laboratory work is reviewed, unremarkable. CT angio shows no large vessel occlusion. Patient to be admitted for stroke work-up per teleneurology recommendations. Given full dose ASA, teleneuro recommends ASA/plavix for 21 days. - TPA CVA checklist Inclusion crititeria: positive: CT no bleed, Onset know < 4.5 hr Relative contraindications: positive: Too mild Departure - Departure Disposition: 66 [facility] DC/Xfer Clinical Impression: Cerebrovascular accident (CVA) Qualifiers: CVA mechanism: other Qualified Code(s): I63.89 - Other cerebral infarction Condition: Stable Forms: PCP List
[2023-06-27] MEDS ORDERED: ASPIRIN CHEW 81 MG TABLET PO STA (22:18)
[2023-06-27 22:23] LABS: BASOPHILS % (AUTO) 0.5 %; EOSINOPHILS # (AUTO) 0.1 10^3/uL (0.0-0.7); EOSINOPHILS % (AUTO) 2.1 %; HCT - HEMATOCRIT 40.9 % (37.0-47.0); HGB - HEMOGLOBIN 13.6 g/dL (12.0-16.0); LYMPHOCYTES % (AUTO) 34.7 %; MEAN CORPUSCULAR HEMOGLOBIN 31.1 pg (27.0-31.0); MEAN CORPUSCULAR HGB CONC 33.3 g/dL (32.0-36.0); MEAN CORPUSCULAR VOLUME 93.6 fL (81.0-99.0); MEAN PLATELET VOLUME 9.5 fL (7.9-10.8); MONOCYTES # (AUTO) 0.7 10^3/uL (0.0-1.0); MONOCYTES % (AUTO) 11.3 %; NEUTROPHILS % (AUTO) 51.2 %; PLT - PLATELET COUNT 202 10^3/uL (130-450); RED BLOOD COUNT 4.37 10^6/uL (4.20-5.40); RED CELL DISTRIBUTION WIDTH 12.1 % (12.0-15.0); WHITE BLOOD COUNT 5.9 x10^3/uL (4.8-10.8)
[2023-06-27 22:33] LABS: INR 0.9 (0.8-1.2); PT - PROTHROMBIN TIME 10.1 secs (9.9-12.6)
[2023-06-27 22:35] LABS: ALBUMIN/GLOBULIN RATIO 1.3 (1.0-2.2); CALCIUM 9.5 mg/dL (8.5-10.3); CREATININE 1.1 mg/dL (0.4-1.0); POTASSIUM 3.3 mmol/L (3.5-5.0); TOTAL PROTEIN 7.2 g/dL (6.7-8.2)
--- NOTE | 2023-06-27 22:35 | XRAY Report ---
PROCEDURE: Chest 1 View X-Ray INDICATIONS: code stroke TECHNIQUE: One view of the chest was acquired. COMPARISON: None. FINDINGS: Surgical changes and devices: None. Lungs and pleura: No pleural effusions or pneumothorax. Lungs are clear. Mediastinum: Mediastinal contours appear normal. Heart size is normal. Bones and chest wall: No suspicious bony lesions. Overlying soft tissues appear unremarkable. IMPRESSION: No acute cardiopulmonary process. Reviewed by: Bryan Coon MD on 06/27/2023 10:33 PM PDT Approved by: Bryan Coon MD on 06/27/2023 10:33 PM PDT Station ID: [id number]
[2023-06-27 23:15] LABS: BILIRUBIN,TOTAL 0.3 mg/dL (0.2-1.0)
[2023-06-27] MEDS ORDERED: iohexoL-300 100 ML VIAL IVP ONE (23:40)
--- NOTE | 2023-06-28 00:16 | CT Report ---
PROCEDURE: CT Angio Head/Neck INDICATIONS: CODE STROKE TECHNIQUE: Axial 1 mm thin sections during arterial phase of contrast enhancement were obtained, with subsequent parasagittal and paracoronal reformation imaging optimized for vascular enhancement in vi sualization. COMPARISON: Noncontrast head CT earlier same day reviewed.. FINDINGS: Arterial structures from the aortic arch cephalad into the brain parenchyma show no area of high-grad e stenosis, embolic disease or aneurysm. No adjacent inflammatory change is seen. The visualized brai n parenchyma shows no edema or mass effect. Incidental note is made of moderately severe cervical deg enerative disc disease and moderate spinal stenosis over the middle and lower thirds of the cervical spine. IMPRESSION: Normal CT angiogram through the head and neck. Significant degenerative disc disease and spinal steno sis along the cervical spine best seen through the middle and lower thirds of the cervical region. Th is appears chronic. Reviewed by: Bryan Coon MD on 06/28/2023 12:15 AM PDT Approved by: Bryan Coon MD on 06/28/2023 12:15 AM PDT Station ID: [id number]
[2023-06-28] MEDS ORDERED: SODIUM CHLORIDE FLUSH 0.9% 10 ML SYRINGE IVP PRN (03:12)
[2023-06-28] MEDS ORDERED: ONDANSETRON 4 MG/2 ML VIAL IVP PRN (03:12)
--- NOTE | 2023-06-28 03:32 | HISTORY & PHYSICAL EXAMINATION ---
Chief Complaint - Chief Complaint Chief Complaint: L sided weakness, slurred speech History of Present Illness - History of Present Illness HPI Comment/Other: pt states that around 8-830 pm last night, she had L arm and leg weakness and numbness, along with L facial numbness, and slurred speech. no inciting factors. no chest pain, sob, or confusion. she states she had an episode of L sided weakness "about 40 years ago," but no documented h/o cva. no fevers or chills. no headache. no loc or seizures. no dysuria, hematuria, nausea, vomiting. History - Past Medical History Cardiovascular: reports: Hypertension, High cholesterol Respiratory: reports: None Neuro: reports: None Endocrine/Autoimmune: reports: None GI: reports: Diverticulitis : reports: None HEENT: reports: None, Chronic hearing loss Psych: reports: Panic attacks Musculoskeletal: reports: Osteoarthritis Derm: reports: None MRSA Hx?: No - Past Surgical History General: reports: Cholecystectomy /SKY CAP: reports: Hysterectomy Meds/Allgy - Home Medications Home Medications: Ambulatory Orders Medication Instructions Recorded Confirmed Pravastatin Sodium 20 mg PO HS 06/27/23 06/27/23 Trazodone HCl 100 mg PO HS 06/27/23 06/27/23 Triamterene/Hydrochlorothiazid 1 each PO DAILY 06/27/23 06/27/23 [Triamterene-Hctz 37.5-25 mg Cp] buPROPion HCL [Bupropion HCl Sr] 150 mg PO BID 06/27/23 06/27/23 - Allergies Allergies/Adverse Reactions: Allergies Allergy/AdvReac Type Severity Reaction Status Date / Time codeine Allergy Respiratory Verified 06/27/23 21:54 morphine Allergy Respiratory Verified 06/27/23 21:54 oxycodone Allergy Respiratory Verified 06/27/23 21:54 Review of Systems - Other Findings Other Findings: 14 pt review done with positives per hpi; all others reviewed as negative Exam - Vital Signs Vital Signs: Vital Signs x48h Pulse Resp BP Pulse Ox 06/28/23 02:30 67 10 L 118/55 L 96 06/28/23 02:00 66 10 L 109/58 L 96 06/28/23 01:30 71 10 L 118/54 L 97 06/28/23 01:00 67 10 L 126/78 96 06/28/23 00:30 77 12 119/56 L 96 06/28/23 00:00 75 11 L 126/56 L 97 06/27/23 23:30 80 18 131/77 H 98 06/27/23 23:00 80 20 131/77 H 98 06/27/23 22:30 80 19 131/77 H 98 06/27/23 22:00 84 14 140/50 H 96 06/27/23 21:48 79 17 157/69 H 95 - Physical Exam Comments/Other: gen - aaox3, nad, polite heent - eomi, nc/at, no obvious facial droop noted heart - rrr lungs - ctab abd - soft, nt, bsx4 msk - no acute trauma, rom intact x 4 neuro - cn 2-12 grossly intact, gag not checked, aaox3 Conclusion/Plan - Lab Results Fish Bones: 06/27/23 22:18 06/27/23 22:18 - Other Other Results/Comments: pt with - - cva waxing and waning symptoms of slurred speech and L sided weakness head / neck imaging thus far NEG per tele-neuro --> check mri, 2d echo, start asa, plavix continue neuro checks, check a1c, tsh, lipid panel - slurred speech improved / resolved now d/t above continue monitoring no difficulty swallowing - hypokalemia replete, check mag - hyperglycemia exacerbated d/t above no reported h/o t2dm check a1c f/u labs, neuro status, replete electrolytes further orders per clinical course
[2023-06-28 04:43] LABS: BASOPHILS % (AUTO) 0.7 %; EOSINOPHILS # (AUTO) 0.2 10^3/uL (0.0-0.7); EOSINOPHILS % (AUTO) 2.5 %; HCT - HEMATOCRIT 41.7 % (37.0-47.0); HGB - HEMOGLOBIN 13.8 g/dL (12.0-16.0); LYMPHOCYTES # (AUTO) 2.2 10^3/uL (1.5-3.5); MEAN CORPUSCULAR HEMOGLOBIN 31.6 pg (27.0-31.0); MEAN CORPUSCULAR HGB CONC 33.1 g/dL (32.0-36.0); MEAN CORPUSCULAR VOLUME 95.4 fL (81.0-99.0); MEAN PLATELET VOLUME 9.4 fL (7.9-10.8); MONOCYTES # (AUTO) 0.6 10^3/uL (0.0-1.0); MONOCYTES % (AUTO) 10.2 %; NEUTROPHILS % (AUTO) 49.4 %; PLT - PLATELET COUNT 211 10^3/uL (130-450); RED BLOOD COUNT 4.37 10^6/uL (4.20-5.40); RED CELL DISTRIBUTION WIDTH 12.1 % (12.0-15.0); WHITE BLOOD COUNT 6.1 x10^3/uL (4.8-10.8)
[2023-06-28 05:03] LABS: ALBUMIN 4.1 g/dL (3.2-5.5); ALBUMIN/GLOBULIN RATIO 1.4 (1.0-2.2); BILIRUBIN,TOTAL 0.3 mg/dL (0.2-1.0); CALCIUM 9.8 mg/dL (8.5-10.3); MAGNESIUM 1.9 mg/dL (1.7-2.3); PHOSPHORUS 4.3 mg/dL (2.5-5.0); POTASSIUM 3.7 mmol/L (3.5-4.5)
[2023-06-28 05:04] LABS: CHOLESTEROL 189 mg/dL; HDL CHOLESTEROL 63 mg/dL; LDL CHOLESTEROL,CALCULATED 103 mg/dL; LDL/HDL RATIO 1.6 (<4.4); TRIGLYCERIDES 116 mg/dL (48-352); VLDL CHOLESTEROL 23 mg/dL
[2023-06-28 05:05] LABS: HIV RAPID SCREEN NEGATIVE (NEGATIVE)
[2023-06-28 05:16] LABS: THYROID STIMULATING HORMONE 2.86 uIU/mL (0.34-5.60)
[2023-06-28 07:24] LABS: ESTIMATED AVERAGE GLUCOSE 114 mg/dL (70-100); HEMOGLOBIN A1c% 5.6 % (4.27-6.07)
[2023-06-28] MEDS ORDERED: POTASSIUM CHLORIDE 20 MEQ TABLET PO ONE (08:00)
[2023-06-28] MEDS: SODIUM CHLORIDE FLUSH 0.9% 10 ML SYRINGE IVP SCH ×2 (08:32→16:48)
[2023-06-28] MEDS ORDERED: CLOPIDOGREL 75 MG TABLET PO SCH (09:00)
[2023-06-28] MEDS ORDERED: ENOXAPARIN 40 MG/0.4 ML SYRINGE SUBQ SCH (09:00)
[2023-06-28] MEDS ORDERED: TRIAMT/HCTZ 37.5 MG/25 MG CAPSULE PO SCH (09:00)
[2023-06-28] MEDS ORDERED: ASPIRIN CHEW 81 MG TABLET PO SCH (09:00)
--- NOTE | 2023-06-28 10:48 | PHARMACY PROGRESS NOTE ---
- Best Possible Medication History Admit Date and Time: 06/28/23 0313 Processed by: Pharmacy Medication History completed: Yes Patient Interview: Completed Secondary Source(s): Pharmacy records As the person ultimately responsible for medication therapy, providers are able to order a medication from an existing home medication list in [facility] via the "Reconcile Routine" prior to Confirmation of that medication by sales support technician. Such practice is discouraged except when the physician, in their clinical judgment, deems that a medical need exists for a medication without regard to previous use.
--- NOTE | 2023-06-28 13:11 | CT Report ---
PROCEDURE: HEAD WO INDICATIONS: F/U stroke TECHNIQUE: Noncontrast 4.5 mm thick angled axial sections acquired from the foramen magnum to the vertex. For r adiation dose reduction, the following was used: automated exposure control, adjustment of mA and/or kV according to patient size. COMPARISON: CTA head 06/27/2023, CT head 06/27/2023 FINDINGS: Image quality: Excellent. CSF spaces: Basal cisterns are patent. No extra-axial fluid collections. Ventricles are normal in size and shape. Brain: No midline shift. No intracranial masses or hemorrhage. Bashir-white matter interface is norm al. Left frontal lobe encephalomalacia is unchanged Skull and face: Calvarium and visualized facial bones are intact, without suspicious lesions. Sinuses: Visualized sinuses and mastoids are clear. IMPRESSION: No acute intracranial pathology. Sequela of remote infarct in the left frontal lobe. Reviewed by: Ayden Mcgarry MD on 06/28/2023 12:10 PM MONIQUE Approved by: Ayden Mcgarry MD on 06/28/2023 12:10 PM [place] Station ID: [id number]
[2023-06-28] MEDS ORDERED: ACETAMINOPHEN 325 MG TABLET PO PRN (17:00)
--- NOTE | 2023-06-28 17:53 | DISCHARGE SUMMARY ---
Discharge Summary Admit Date: 06/28/23 Discharge Date: 06/28/23 Discharging Provider: Dr Greta Mcneill Primary Care Provider: MAUDE Mendoza Code Status: Attempt Resuscitation Condition at Discharge: Stable Discharge Disposition: 02 Transfer Acute Care Hosp Discharge Facility Name: [facility] History of Present Illness: This is a 68-year-old female with a history of stroke about 20 years ago, bilateral hearing loss, depression and hyperlipidemia. pt states that around 8-830 pm last night 06/27/23, she developed sudden L arm and leg weakness and numbness, along with L facial dropp and numbness, and slurred speech. no inciting factors. no chest pain, sob, or confusion. she states she had an episode of L sided weakness "about 20 years ago" . she had no fevers or chills. no headache. no loc or seizures. no dysuria, hematuria, nausea, vomiting. Upon presentation to the ER at 4.5 hours of symptoms, her symptoms had resolved, and a STAT head CT showed no acute findings. Neuro stroke was consulted and at that point her slurred speech and left facial droop and numbness recurred. SheThe recommendation was not to use TNK because her symptoms were so minor. Was advised to be brought into the hospital to undergo telemetry monitoring, brain MRI and have an echo. She was loaded with aspirin 324 mg orally. CODE STATUS is Full Code. - HOSPITAL COURSE Hospital Course: 1) CVA The patient was placed on telemetry, there were no episodes of A-fib seen. She was started on baby aspirin daily and Plavix 75 mg daily. She had presented with a stuttering stroke and the second episode of neuro deficit (which consisted of facial droop and slurred speech only), resolved, and her neuro exam was normal. We did not have MRI available for over a day and no Echo service available here for over 72 hours, therefore she was accepted in transfer to [facility] to complete the stroke work-up. 2) Old CVA There was evidence of left frontal lobe encephalomalacia seen on her CT brain i maging. 3) Hyperlipidemia Her fasting LDL came back at 103. The target is <70 in this pt with a stroke. Her Pravachol 20 mg dose was incraesed to 80 mg nightly. 4) [place] She uses bilateral hearing aides - ALLERGIES Allergies/Adverse Reactions: Allergies Allergy/AdvReac Type Severity Reaction Status Date / Time codeine Allergy Respiratory Verified 06/27/23 21:54 morphine Allergy Respiratory Verified 06/27/23 21:54 oxycodone Allergy Respiratory Verified 06/27/23 21:54 - MEDICATIONS Home Medications: Ambulatory Orders Medication Instructions Recorded Confirmed Pravastatin Sodium 20 mg PO HS 06/27/23 06/27/23 Trazodone HCl 100 mg PO HS 06/27/23 06/27/23 Triamterene/Hydrochlorothiazid 1 each PO DAILY 06/27/23 06/27/23 [Triamterene-Hctz 37.5-25 mg Cp] buPROPion HCL [Bupropion HCl Sr] 150 mg PO BID 06/27/23 06/27/23 Calcium Carbonate/Vitamin D3 1 tab PO DAILY 06/28/23 06/28/23 [Calcium 600-Vit D3 200 Tablet] Calcium Polycarbophil [Fiber-Lax] 2 tab PO DAILY 06/28/23 06/28/23 Glucosamine Sulfate 1 tab PO BID 06/28/23 06/28/23 Ibuprofen 1 tab PO DAILY 06/28/23 06/28/23 Lactobacillus Combination No.4 1 cap PO DAILY 06/28/23 06/28/23 [Probiotic] Multivitamin W/Minerals [Theragran 1 tab PO DAILY 06/28/23 06/28/23 M] Nicotine Polacrilex [Nicotine Gum] 1 tab PO BID PRN 06/28/23 06/28/23 [place]-3/Dha/Epa/Fish Oil [Fish Oil 1 cap PO DAILY 06/28/23 06/28/23 1,000 mg Softgel] - PHYSICAL EXAM AT DISCHARGE General Appearance: positive: No acute distress, Alert Eyes Bilateral: positive: Normal inspection, EOMI ENT: positive: ENT inspection nml, Other ([place], has bilat hearig aides) Neck: positive: Nml inspection, No JVD Respiratory: positive: No respiratory distress, Breath sounds nml Cardiovascular: positive: Regular rate & rhythm, No murmur Abdomen: positive: Non-tender, Nml bowel sounds, No distention Skin: positive: Warm, Dry Extremities: positive: Non-tender, No pedal edema Neurologic/Psychiatric: positive: Oriented x3, Motor nml, Sensation nml - LABS Result Diagrams: 06/28/23 04:31 06/28/23 12:35 - DIAGNOSTIC IMAGING Diagnostic Imaging Results: Final report reviewed - FOLLOW UP Follow Up: See PCP after discharge from [facility]. - TIME SPENT Time Spent in Discharge (Minutes): 30
--- NOTE | 2023-06-28 17:53 | Discharge Plan ---
Discharge Plan Problem Reviewed?: Yes Disposition: 02 Transfer Acute Care Hosp Condition: Stable No Smoking: If you smoke, Please STOP! Call for help.
[2023-06-28] MEDS ORDERED: PRAVASTATIN 10 MG TABLET PO SCH (21:00)
[2023-06-28] MEDS ORDERED: PRAVASTATIN 40 MG TABLET PO SCH (21:00)
[2023-06-28 21:25] VITALS: BP 117/63; O2SAT 95
[2023-06-30 06:10] LABS: RPR Non Reactive (Non Reactive)
== END 2023-06-28 21:20 | disposition short-term general hospital (02) ==
LOC: EDUNIT# → ED 21:26 → UNDOADMOB 06-28 03:13 → ICU 06-28 03:13 → UNDOADMOB 06-28 12:48 → ICU 06-28 12:48
PROVIDERS: ADMIT Student in an Organized Health Care Education/Training Program; ATTEND Internal Medicine
DX: I63.9 Cerebral infarction, unspecified (principal); R47.81 Slurred speech; R73.9 Hyperglycemia, unspecified; R29.810 Facial weakness; R29.702 NIHSS score 2; G81.94 Hemiplegia, unspecified affecting left nondominant side; E78.5 Hyperlipidemia, unspecified; E87.6 Hypokalemia; H91.93 Unspecified hearing loss, bilateral; I10 Essential (primary) hypertension; Z87.891 Personal history of nicotine dependence
CPT/HCPCS: 36415; 70450; 70496; 70498; 71045; 80053; 80061; 81003; 83036; 83735; 84100; 84132; 84443; 84484; 85025; 85610; 86592; 86703; 87150; 93005; 96372; 99284; 99285; A9270; G0378; J1650; Q9967; 81001; 83721; 87086

== ENCOUNTER 2024-05-02 08:14 | Outpatient (CLI) | payer OTHER ==
[2024-05-02 12:26] LABS: BASOPHILS % (AUTO) 0.8 %; EOSINOPHILS # (AUTO) 0.2 10^3/uL (0.0-0.7); EOSINOPHILS % (AUTO) 2.9 %; HCT - HEMATOCRIT 43.8 % (37.0-47.0); HGB - HEMOGLOBIN 14.1 g/dL (12.0-16.0); LYMPHOCYTES # (AUTO) 1.7 10^3/uL (1.5-3.5); LYMPHOCYTES % (AUTO) 32.4 %; MEAN CORPUSCULAR HEMOGLOBIN 31.2 pg (27.0-31.0); MEAN CORPUSCULAR HGB CONC 32.2 g/dL (32.0-36.0); MEAN CORPUSCULAR VOLUME 96.9 fL (81.0-99.0); MEAN PLATELET VOLUME 11.6 fL (7.9-10.8); MONOCYTES # (AUTO) 0.5 10^3/uL (0.0-1.0); MONOCYTES % (AUTO) 10.2 %; NEUTROPHILS # (AUTO) 2.8 10^3/uL (1.5-6.6); NEUTROPHILS % (AUTO) 53.5 %; PLT - PLATELET COUNT 210 10^3/uL (130-450); RED BLOOD COUNT 4.52 10^6/uL (4.20-5.40); RED CELL DISTRIBUTION WIDTH 12.3 % (12.0-15.0); WHITE BLOOD COUNT 5.2 x10^3/uL (4.8-10.8)
[2024-05-02 12:56] LABS: ALBUMIN 4.4 g/dL (3.2-5.5); ALBUMIN/GLOBULIN RATIO 1.8 (1.0-2.2); ALKALINE PHOSPHATASE 51 IU/L (42-121); ALT ALANINE AMINOTRANSFERASE 23 IU/L (10-60); AST ASPARTATE AMINOTRANSFERASE 20 IU/L (10-42); BILIRUBIN,TOTAL 0.6 mg/dL (0.2-1.0); BUN - BLOOD UREA NITROGEN 19 mg/dL (6-20); CALCIUM 9.7 mg/dL (8.5-10.3); CARBON DIOXIDE - CO2 31 mmol/L (21-32); CHLORIDE 101 mmol/L (101-111); CHOL/HDL RATIO 2.2 (<4.4); CHOLESTEROL 138 mg/dL; GFR - MDRD 55 (>89); GLUCOSE 114 mg/dL (74-104); HDL CHOLESTEROL 62 mg/dL; LDL CHOLESTEROL,CALCULATED 55 mg/dL; LDL/HDL RATIO 0.9 (<4.4); POTASSIUM 3.8 mmol/L (3.5-4.5); SODIUM 137 mmol/L (135-145); THYROID STIMULATING HORMONE 1.21 uIU/mL (0.34-5.60); TOTAL PROTEIN 6.9 g/dL (6.4-8.9); TRIGLYCERIDES 105 mg/dL (48-352); VLDL CHOLESTEROL 21 mg/dL
== END 2024-05-02 08:15 | disposition home or self-care (01) ==
LOC: LAB.N 08:14
PROVIDERS: ATTEND Physician Assistant
DX: I10 Essential (primary) hypertension (principal); E78.5 Hyperlipidemia, unspecified
CPT/HCPCS: 36415; 80053; 80061; 83721; 84443; 85025

== ENCOUNTER 2024-07-14 13:26 | Outpatient (CLI) | payer OTHER ==
[2024-07-14 18:19] LABS: CALCIUM 9.1 mg/dL (8.5-10.3); CREATININE 0.9 mg/dL (0.6-1.3); POTASSIUM 3.5 mmol/L (3.5-4.5)
== END 2024-07-14 13:27 | disposition home or self-care (01) ==
LOC: LAB.N 13:26
PROVIDERS: ATTEND Physician Assistant
DX: I12.9 Hypertensive chronic kidney disease with stage 1 through stage 4 chronic kidney disease, or unspecified chronic kidney disease (principal); N18.31 Chronic kidney disease, stage 3a
CPT/HCPCS: 36415; 80048